=== PATIENT | male | born 1960 | race Two or more races ===

== ENCOUNTER 2020-01-20 08:36 | Inpatient (IN) | payer OTHER ==
[2020-01-20] VITALS (9 sets, daily range): BP systolic 104–126; BP diastolic 43–67
[~2020-01-20] VITALS: Ht 182.9 cm; Wt 76.2 kg
[~2020-01-20 08:36] MED LIST: ANESTHESIA TRAY IN PYXIS 1 EA TRAY MC ONE
[2020-01-20] MEDS ORDERED: BUPIVACAINE 0.5 % PF 150 MG/30 ML VIAL ONE (08:41)
[2020-01-20] MEDS ORDERED: MORPHINE SULFATE/PF 10 MG/10ML (1MG/ML) AMPUL ONE (08:41)
[2020-01-20] MEDS ORDERED: GELATIN SPONGE,ABSORBABLE 1 EA SPONGE TP ONE (09:30)
[2020-01-20] MEDS ORDERED: LIDOCAINE HCL/PF 1% 30 ML SDV ONE (09:30)
[2020-01-20] MEDS ORDERED: BACITRACIN 50000 UNITS/VIAL ONE (09:30)
[2020-01-20] MEDS ORDERED: HEMOSTATIC MATRIX 8 ML 1 EACH PAD MC ONE (09:30)
[2020-01-20] MEDS ORDERED: THROMBIN (BOVINE) 5,000 UNITS VIAL TP ONE (09:31)
[2020-01-20] MEDS ORDERED: HEPARIN SODIUM, PORCINE 5000 UNITS/1 ML VIAL ONE (09:33)
[2020-01-20] MEDS ORDERED: FENTANYL PF 100MCG/2ML AMPUL ONE ×2 (10:22→12:50)
[2020-01-20] MEDS ORDERED: ROCURONIUM BROMIDE 50 MG/5 ML ONE (10:22)
[2020-01-20] MEDS ORDERED: MIDAZOLAM HCL 2 MG/2ML VIAL ONE (10:22)
[2020-01-20] MEDS ORDERED: BUPIVACAINE MPF W/EPI 0.25% 30 ML VIAL ONE (11:08)
[2020-01-20] MEDS ORDERED: LIDOCAINE 0.5%-EPI 1:200,000 50 ML VIAL ONE (11:10)
[2020-01-20] MEDS ORDERED: LIDOCAINE 0.5% HCL 50 ML VIAL ONE (11:11)
[2020-01-20] MEDS ORDERED: BUPIVACAINE 0.25% 75 MG/30 ML VIAL ONE (11:13)
[2020-01-20] MEDS ORDERED: SENOKOT 8.6 MG TABLET PO PRN (16:00)
[2020-01-20] MEDS ORDERED: ZOFRAN 4mg/2ML IV PRN (16:00)
[2020-01-20] MEDS ORDERED: COLACE 250 MG CAPSULE PO PRN (16:00)
[2020-01-20] MEDS ORDERED: HYDROCODONE/APAP 5/325MG 1 EACH TABLET PO PRN ×2 (16:00→17:30)
[2020-01-20] MEDS ORDERED: HYDROMORPHONE 1 MG/1 ML DISP.SYRIN IV PRN (16:00)
--- NOTE | 2020-01-20 16:05 | NUR ---
MS RN NOTE PATIENT ARRIVED BY BED FROM SURGERY. PATIENT IN NO ACUTE DISTRESS. NO SOB NOTED. PATIENT BREATHING IS EVEN AND UNLABORED. PATIENT VITAL SIGNS WNL. PATIENT LAYING FLAT IN BED, ORDER FOR TURNING. PATIENT REFUSING TO HAVE FURTHER SKIN ASSESSMENT AT THIS TIME. DUE TO PAIN AND UNABLE TO TURN AT THIS TIME. WILL CARRY OUT AND FOLLOW THROUGH POSTOP ORDERS. BETHANY CALDWELL NOTIFIED AND MADE AWARE OF PATIENT ARRIVING ON THE UNIT. NOTIFIED TREVOR GRACE FOR PAIN MANAGEMENT CONSULT. PATIENT BED IS LOCKED AND IN LOWEST POSITION. CALL LIGHT WITHIN REACH. WILL CONTINUE TO MONITOR. Addendum: 01/20/20 at 1609 by BROOK AVALOS RN MS RN NOTE PATIENT ARRIVED BY BED FROM SURGERY AT 1515. PATIENT IN NO ACUTE DISTRESS. NO SOB NOTED. PATIENT BREATHING IS EVEN AND UNLABORED. PATIENT VITAL SIGNS WNL. PATIENT LAYING FLAT IN BED, ORDER FOR TURNING. PATIENT REFUSING TO HAVE FURTHER SKIN ASSESSMENT AT THIS TIME. DUE TO PAIN AND UNABLE TO TURN AT THIS TIME. WILL CARRY OUT AND FOLLOW THROUGH POSTOP ORDERS. BETHANY CALDWELL NOTIFIED AND MADE AWARE OF PATIENT ARRIVING ON THE UNIT. NOTIFIED TREVOR GRACE FOR PAIN MANAGEMENT CONSULT. PATIENT BED IS LOCKED AND IN LOWEST POSITION. CALL LIGHT WITHIN REACH. WILL CONTINUE TO MONITOR.
[2020-01-20] MEDS: IV NS 0.9% 1,000 ML IV PRN (16:24)
[2020-01-20] MEDS ORDERED: METHOCARBAMOL (500MG) 500 MG TABLET PO PRN (17:30)
[2020-01-20] MEDS ORDERED: HYDROCODONE/APAP 10/325MG 1 EA TABLET PO PRN (17:30)
--- NOTE | 2020-01-20 17:31 | NUR ---
MS RN NOTE SPOKE WITH DR. GRACE REGARDING PAIN MANAGEMENT CONSULT. PER MD ORDER FOR NORCO5-325 Q4H FOR MODERATE PAIN, NORCO 10-325 Q4H FOR SEVERE PAIN, DILAUDID Q4H 1MG FOR BREAKTHROUGH PAIN AND ROBAXIN Q8H 500 MG. READBACK ORDER VERIFIED. WILL CARRY OUT ORDERS FROM .
[2020-01-20] MEDS: CEFAZOLIN 2 GM in IV D5W 100 ML IV SCH (18:12)
--- NOTE | 2020-01-20 19:05 | NUR ---
MS RN CLOSING NOTE PATIENT IN NO ACUTE DISTRESS. NO SOB NOTED. PATIENT BREATHING IS EVEN AND UNLABORED. PATIENT IN NO PAIN AT THIS TIME. PATIENT BED REMAINS FLAT. PATIENT NEEDS AND CONCERNS ADDRESSED. PATIENT KEPT CLEAN AND DRY THROUGHOUT MY SHIFT. PATIENT BED IS LOCKED AND IN LOWEST POSITION. CALL LIGHT WITHIN REACH. WILL ENDORSE CARE TO PM SHIFT FOR GRISELDA.
--- NOTE | 2020-01-20 20:00 | NUR ---
MS RN NOTES RECEIVED PATIENT AWAKE IN BED WITH NO DISTRESS NOTED. CALL LIGHT WITHIN REACH. PERIPHERAL LINE INTACT AND PATENT. NO C/O PAIN OR DISCOMFORT. PATIENT LAYING FLAT ON BACK AND ABLE TO MOVE ALL EXTREMITIES. ENCOURAGED USE OF CALL LIGHT FOR ASSISTANCE AND VERBALIZED GOOD UNDERSTANDING. ROOM FREE OF CLUTTER AND BELONGINGS KEPT NEAR BEDSIDE. BED IN LOW LOCK SETTING. WILL CONTINUE TO MONITOR.
[2020-01-20] MEDS: HYDROMORPHONE 1 MG/1 ML DISP.SYRIN IV PRN (22:23)
--- NOTE | 2020-01-21 00:53 | NUR ---
MS RN NOTES Assume care of this patient.
[2020-01-21] MEDS: CEFAZOLIN 2 GM in IV D5W 100 ML IV SCH ×3 (02:15→17:12)
[2020-01-21] MEDS: HYDROMORPHONE 1 MG/1 ML DISP.SYRIN IV PRN ×4 (02:56→20:46)
[2020-01-21] MEDS: IV NS 0.9% 1,000 ML IV PRN ×2 (05:20→17:29)
--- NOTE | 2020-01-21 06:31 | NUR ---
MS RN CLOSING NOTES Patient intermittently asleep, on supine position on bed. Medicated for pain, noted effective. All nursing needs attended, due meds given as ordered. No new complaints made. Kept on bed clean, dry and comfortable. Visited by MD, POC discussed to patient. Patient understands to be flat on bed 48hrs s/p laminectomy then PT eval on 01/22/2020. Endorsed.
[2020-01-21 06:54] LABS: BASOPHILS % (AUTO) 0.1 % (0.0-2.0); HEMATOCRIT 35 % (39-51); HEMOGLOBIN 11.9 g/dL (13.5-17.5); LYMPHOCYTES # (AUTO) 0.9 /CMM (0.8-4.8); LYMPHOCYTES % (AUTO) 12.5 % (20.0-44.0); MEAN CORPUSCULAR HGB CONC 34 g/dl (31.0-36.0); MEAN CORPUSCULAR VOLUME 94 fL (80-96); MONOCYTES # (AUTO) 0.7 /CMM (0.1-1.30); MONOCYTES % (AUTO) 10.6 % (2.0-12.0); NEUTROPHILS # (AUTO) 5.3 /CMM (1.8-8.9); NEUTROPHILS % (AUTO) 76.8 % (43.0-81.0); PLATELET COUNT (AUTO) 141 /CMM (150-450); RED BLOOD CELL COUNT(AUTO) 3.75 MIL/uL (4.5-6.0); WHITE BLOOD COUNT (AUTO) 6.9 K/uL (4.3-11.0)
--- NOTE | 2020-01-21 07:49 | NUR ---
MS RN OPENING NOTE PATIENT IN BED RESTING COMFORTABLY. PATIENT IN NO ACUTE DISTRESS. NO SOB NOTED. PATIENT BREATHING IS EVEN AND UNLABORED. PATIENT IN NO PAIN AT THIS TIME. PATIENT BED ALARM IS ON. PATIENT BED REMAINS FLAT. PATIENT BED IS LOCKED AND IN LOWEST POSITION. SAFETY PRECAUTIONS IN PLACE. CALL LIGHT WITHIN REACH. WILL CONTINUE TO MONITOR.
[2020-01-21 08:00] VITALS: BP 96/57
[2020-01-21 09:17] LABS: CALCIUM, SERUM 7.9 mg/dL (8.5-10.1); CREATININE 1.2 mg/dL (0.6-1.3); MAGNESIUM 1.7 mg/dL (1.8-2.4); PHOSPHORUS 2.9 mg/dL (2.5-4.9); POTASSIUM 3.9 mmol/L (3.5-5.1)
[2020-01-21] MEDS ORDERED: BISACODYL SUPP (10 MG) 10 MG/SUPP.RECT SUPP.RECT RC PRN (10:30)
[2020-01-21] MEDS: TYLENOL 650 MG TABLET PO PRN (11:00)
--- NOTE | 2020-01-21 11:45 | NUR ---
MS RN NOTE PATIENT STATED FEELING HOT AT 1100, TEMPERATURE WAS 100.1. IMPLEMENTED COOLING MEASURES AND TYLENOL PRN WAS GIVEN. RECHECKED TEMPERATURE AT 1130, TEMPERATURE WAS 98.9 AND PATIENT STATED FEELING MUCH BETTER. PATIENT IN NO ACUTE DISTRESS. WILL CONTINUE TO MONITOR.
--- NOTE | 2020-01-21 14:45 | NUR ---
MS RN NOTE PER DR. SANJAY FARMER TO TRANSFER PATIENT GENTLY TO AIR MATTRESS AND HAVE PATIENT REMAIN FLAT WHILE TRANSFERRING.
[2020-01-21 16:00] VITALS: BP 121/61
[2020-01-21] MEDS: DOCUSATE SODIUM 250 MG CAPSULE PO SCH (17:12)
[2020-01-21 20:00] VITALS: BP 142/79
[2020-01-21] MEDS: MAGNESIUM HYDROXIDE 30 ML UDC PO SCH (21:04)
[2020-01-22] MEDS: HYDROMORPHONE 1 MG/1 ML DISP.SYRIN IV PRN (01:44)
[2020-01-22] MEDS: CEFAZOLIN 2 GM in IV D5W 100 ML IV SCH ×2 (01:45→10:03)
[2020-01-22] MEDS: TYLENOL 650 MG TABLET PO PRN ×2 (04:48→21:07)
[2020-01-22 06:16] LABS: BASOPHILS % (AUTO) 0.2 % (0.0-2.0); HEMATOCRIT 36 % (39-51); HEMOGLOBIN 12.2 g/dL (13.5-17.5); LYMPHOCYTES # (AUTO) 0.9 /CMM (0.8-4.8); LYMPHOCYTES % (AUTO) 8.6 % (20.0-44.0); MEAN CORPUSCULAR HGB CONC 34 g/dl (31.0-36.0); MEAN CORPUSCULAR VOLUME 94 fL (80-96); MONOCYTES # (AUTO) 1.2 /CMM (0.1-1.30); MONOCYTES % (AUTO) 11.1 % (2.0-12.0); NEUTROPHILS # (AUTO) 8.3 /CMM (1.8-8.9); NEUTROPHILS % (AUTO) 80.1 % (43.0-81.0); PLATELET COUNT (AUTO) 135 /CMM (150-450); RED BLOOD CELL COUNT(AUTO) 3.83 MIL/uL (4.5-6.0); WHITE BLOOD COUNT (AUTO) 10.4 K/uL (4.3-11.0)
[2020-01-22 06:34] LABS: CALCIUM, SERUM 8.5 mg/dL (8.5-10.1); CREATININE 1.4 mg/dL (0.6-1.3); MAGNESIUM 2.2 mg/dL (1.8-2.4); PHOSPHORUS 2.9 mg/dL (2.5-4.9); POTASSIUM 4.2 mmol/L (3.5-5.1)
[2020-01-22] MEDS: IV NS 0.9% 1,000 ML IV PRN (06:36)
--- NOTE | 2020-01-22 06:40 | NUR ---
MS RN NOTES AWAKE & RESPONSIVE. NOT IN ANY DISTRESS. NO SOB NOTED. DENIES ANY PAIN OR DISCOMFORT AT THIS TIME. WITH IVF INFUSING WELL. MONITORED ACCORDINGLY. CALL LIGHT WITHIN REACH. BED IN LOWEST POSITION. SR UP X 3 WITH BED ALARM ON FOR SAFETY. WILL ENDORSE TO NEXT SHIFT.
--- NOTE | 2020-01-22 07:20 | NUR ---
MS RN NOTES RECEIVED PATIENT IN BED, FLAT AND IN SUPINE POSITION. NO SOB. C/O PAIN BUT DOES NOT WANT TO TAKE ANY PAIN MEDICATIONS AT THIS TIME. PATIENT VERBALIZES DISCOMFORT DUE TO UNABLE TO HAVE A BOWEL MOVEMENT FOR THE PAST COUPLE OF DAYS. FLUIDS GIVEN DORIS WELL. LEFT AC # 18 INTACT AND PATENT INFUSING NS @ 80ML/HR DORIS WELL. BED IN LOWEST POSITION, LOCKED. BED ALARM ON. CALL LIGHT WITHIN REACH.
[2020-01-22 08:00] VITALS: BP 134/70
--- NOTE | 2020-01-22 08:00 | NUR ---
MS RN NOTES PATIENT SEEN BY DR. PEREZ (SPINE SURGEON) PER SURGEON, PATIENT NEEDS TO BE SEEN AT 330PM OR AFTER BY PHYSICAL THERAPIST AND CAN GO TO THE BATHROOM. PATIENT EDUCATED BY DR. COLLINS IN NOT TO FLEX FORWARD OR PUSH ESPECIALLY WHILE IN THE BATHROOM.
[2020-01-22] MEDS: DOCUSATE SODIUM 250 MG CAPSULE PO SCH ×2 (08:12→17:00)
--- NOTE | 2020-01-22 09:15 | NUR ---
MS RN NOTES CALLED DR. COLLINS'S OFFICE AND SPOKE TO GWEN REGARDING PATIENT THAT PHYSICAL THERAPIST LEAVES AROUND 3 PM AND PATIENT IS TO LIE FLAT TILL 3330 PM, IF PATIENT CAN BE SEEN BY PHYSICAL THERAPIST EARLY PRIOR TO PHYSICAL THERAPIST LEAVING FOR THE DAY. PER GWEN, SHE WILL RELAY THE MESSAGE TO DR. COLLINS AND WILL CALL BACK.
--- NOTE | 2020-01-22 12:35 | NUR ---
MS RN NOTES CALLED DR. COLLINS'S OFFICE AND FOLLOWED UP RE: PATIENT BEING SEEN EARLY BY PHYSICAL THERAPISTAND LEFT MESSAGE TO VM.
--- NOTE | 2020-01-22 12:40 | NUR ---
MS RN NOTES RECEIVED A CALL FROM DR. COLLINS'S OFFICE AND SPOKE TO GWEN, PER GWEN PER DR. INFANTE, PATIENT IS OK TO GET UP WITH PHYSICAL THERAPY AT 230PM. LEFT MESSAGE WITH PHYSICAL THERAPY
--- NOTE | 2020-01-22 14:30 | NUR ---
MS RN NOTES PATIENT SEEN BY PHYSICAL THERAPY, PATIENT WITH UNSTEADY GAIT. PER REHAB, PATIENT TO USE BED AMBROCIO AT THIS TIME ONLY DUE TO LEGS GIVES UP. PATIENT AWARE.
[2020-01-22] MEDS ORDERED: NA PHOS,M-B/NA PHOS,DI-BA 1 EA ENEMA RC PRN (15:30)
[2020-01-22 16:00] VITALS: BP 147/79
--- NOTE | 2020-01-22 17:31 | NUR ---
MS RN NOTES HELD COLACE AT THIS TIME. PER PATIENT SINCE HE IS HAVING BOWEL MOVEMENTS AT THIS TIME AND ALREADY RECEIVED OTHER LAXATIVES, PATIENT DIDN'T WANT TO TAKE IT.
--- NOTE | 2020-01-22 18:33 | NUR ---
MS RN NOTES PATIENT RESTING COMFORTABLY IN BED. NO S/S OF RESPIRATORY DISTRESS. DENIES ANY C/O PAIN NOR DISCOMFORT AT THIS TIME. PATIENT NOTED TO HAVE 2 SMALL BOWEL MOVEMENT WITH EPISODES OF PASSING GAS. LEFT AC # 18 INTACT AND PATENT INFUSING NS @ 80ML/HR DORIS WELL. BED IN LOWEST POSITION, LOCKED. BED ALARM ON. CALL LIGHT WITHIN REACH. IN NO APPARENT DISTRESS
--- NOTE | 2020-01-22 19:23 | NUR ---
MS RN NOTES RECEIVED A CALL FROM DR. COLLINS, RELAYED TO SURGEON REGARDING PATIENT'S CONSTIPATION, WHEN PATIENT WAS SEEN BY PHYSICAL THERAPIST AND PATIENT'S CURRENT CONDITION AT THIS TIME. PER DR. COLLINS, HE WANTS PATIENT TO GET OUT OF BED AND INCREASE HIS STRENGTH AND TO BE ABLE TO WALK. ENDORSED ACCORDINGLY.
--- NOTE | 2020-01-22 19:30 | NUR ---
RN NOTES RECEIVED PT. AWAKE ON BED, A/OX4,S/P LAMINECTOMY (01/20) COMPLAINING OF NOT SLEEPING FOR COUPLE OF DAYS, MAKE PT. COMFORTABLE, OFFERED PAIN MEDICATION, PER PT. PAIN IS TOLERABLE AT THIS TIME, NO SOB, CALL LIGHT WITHIN REACH, [id number], CONTINUE TO MONITOR
--- NOTE | 2020-01-22 21:00 | NUR ---
RN NOTES PT. COMPLAINED OF HEADACHE AND TEMP OF 100- TYLENOL 650MG PO GIVEN ORDERED
[2020-01-22] MEDS: MAGNESIUM HYDROXIDE 30 ML UDC PO SCH (22:00)
[2020-01-23] MEDS: TYLENOL 650 MG TABLET PO PRN (02:12)
--- NOTE | 2020-01-23 02:20 | NUR ---
RN NOTES COMPLAINED OF HEADACHE- TYLENOL 650MG PO GIVEN ORDERED, AND PUT PT. ON O2 AT 2L
--- NOTE | 2020-01-23 06:39 | NUR ---
RN NOTES AWAKE, MORNING CARE RENDERED, MAKE PT. COMFORTABLE, CALL LIGHT WITHIN REACH, [id number], PT. NEEDS ATTENDED
[2020-01-23 06:50] LABS: BASOPHILS % (AUTO) 0.3 % (0.0-2.0); EOSINOPHILS % (AUTO) 0.5 % (0.0-6.0); HEMATOCRIT 36 % (39-51); LYMPHOCYTES % (AUTO) 10.7 % (20.0-44.0); MEAN CORPUSCULAR HGB CONC 34 g/dl (31.0-36.0); MEAN CORPUSCULAR VOLUME 93 fL (80-96); NEUTROPHILS % (AUTO) 77.5 % (43.0-81.0); PLATELET COUNT (AUTO) 134 /CMM (150-450); RED BLOOD CELL COUNT(AUTO) 3.81 MIL/uL (4.5-6.0); WHITE BLOOD COUNT (AUTO) 9.1 K/uL (4.3-11.0)
[2020-01-23 07:09] LABS: CALCIUM, SERUM 8.7 mg/dL (8.5-10.1); CREATININE 1.3 mg/dL (0.6-1.3); MAGNESIUM 2.1 mg/dL (1.8-2.4); PHOSPHORUS 2.7 mg/dL (2.5-4.9); POTASSIUM 3.5 mmol/L (3.5-5.1)
--- NOTE | 2020-01-23 07:40 | NUR ---
M/S RN NOTES PATIENT AWAKE IN BED, MD AT BEDSIDE CHANGING PATIENT'S DRESSING. PATIENT IN NO RESPIRATORY DISTRESS, C/O HEADACHE BUT PAIN TOLERABLE AT THIS TIME OF 12/29. SKIN WARM TO TOUCH, IV ACCESS SITE INTACT AND PATENT. PATIENT'S NEEDS ATTENDED, BED ON LOWEST LOCKED POSITION, CALL LIGHT WITHIN REACH. WILL CONTINUE TO MONITOR.
[2020-01-23 08:00] VITALS: BP 157/76
[2020-01-23] MEDS: DOCUSATE SODIUM 250 MG CAPSULE PO SCH (09:00)
[2020-01-23] MEDS ORDERED: SENN-168 PO (10:17)
[2020-01-23] MEDS ORDERED: METH500T6 PO (10:17)
[2020-01-23] MEDS ORDERED: HYDR-3972 PO (10:17)
[2020-01-23] MEDS ORDERED: DOCU250C14 PO (10:17)
--- NOTE | 2020-01-23 15:08 | NUR ---
M/S RN NOTES PATIENT DISCHARGED IN STABLE CONDITION, VSS STABLE, NO RESPIRATORY DISTRESS, NO C/O PAIN AT THIS TIME. PATIENT'S SKIN WARM TO TOUCH, SKIN ASSESSED NO SKIN BREAKDOWN. PATIENT'S SURGICAL SITE WITH C/D/I DRESSING. PATIENT'S IV REMOVED AND APPLIED PRESSURE DRESSING. PATIENT GIVEN DISCHARGE INSTRUCTIONS, VERBALIZED UNDERSTANDING. PATIENT'S BELONGINGS ACCOUNTED FOR AND SIGNED. PATIENT'S NEEDS ATTENDED, PATIENT ESCORTED TO LOBBY VIA WHEELCHAIR AND LEFT IN PRIVATE CAR.
== END 2020-01-23 14:50 | disposition home health service (06) | DRG 519 ==
LOC: DS 08:36 → MED 15:20
PROVIDERS: ADMIT Registered Nurse; ATTEND Registered Nurse
DX: M48.07 Spinal stenosis, lumbosacral region (principal); D62 Acute posthemorrhagic anemia; G96.11 Dural tear; G96.12 Meningeal adhesions (cerebral) (spinal); K59.00 Constipation, unspecified; M47.26 Other spondylosis with radiculopathy, lumbar region
CPT/HCPCS: 36415; 72020-TC; 80048-TC; 83735-TC; 84100-TC; 85025-TC; 86850-TC; 86921-TC; 87081-TC; 97110-TC; 97116-TC; 97530-TC; A6209; G0378; J0690; J1100; J1170; J1644; J1885; J2001; J2250; J2274; J2370; J2405; J2704; J2710; J3010; J3490; J7030; J7060